=== PATIENT | female | born 1970 | race Caucasian/White ===

== ENCOUNTER 2017-11-17 16:48 | Emergency (ER) | payer OTHER ==
[2017-11-17 23:29] LABS: ADD MAN DIFF? NO
[2017-11-17 23:33] LABS: ABNORMAL IP MESSAGE 1; BASOPHIL # 0.1 10^3/ul (0.0-0.1); BASOPHILS % 1.2 % (0.0-2.0); EOSINOPHILS # 0.2 10^3/ul (0.0-0.5); EOSINOPHILS % 3.5 % (0.0-7.0); HEMATOCRIT 36.7 % (37.0-47.0); HEMOGLOBIN 11.2 g/dl (12.0-16.0); LYMPHOCYTES # 2.2 10^3/ul (0.8-2.9); LYMPHOCYTES % 32.7 % (15.0-51.0); MEAN CORPUSCULAR HEMOGLOBIN 24.9 pg (29.0-33.0); MEAN CORPUSCULAR HGB CONC 30.5 g/dl (32.0-37.0); MEAN CORPUSCULAR VOLUME 81.7 fl (82.0-101.0); MEAN PLATELET VOLUME 8.5 fl (7.4-10.4); MONOCYTE # 0.5 10^3/ul (0.3-0.9); MONOCYTES % 7.6 % (0.0-11.0); NEUTROPHIL # 3.7 10^3/ul (1.6-7.5); NEUTROPHILS % 54.7 % (39.0-77.0); PLATELET COUNT 248 10^3/UL (140-415); RED BLOOD COUNT 4.49 10^6/ul (4.20-5.40); RED CELL DISTRIBUTION WIDTH 23.9 % (11.5-14.5)
[2017-11-17 23:33] LABS: WHITE BLOOD COUNT 6.8 10^3/ul (4.8-10.8)
[2017-11-17] MEDS: FAMOTIDINE 20 MG INJ IV (23:40)
[2017-11-17] MEDS: ONDANSETRON 4 MG INJ IV (23:40)
[2017-11-17] MEDS: SOD CHLORIDE 0.9% 1,000 ML IV (23:40)
[2017-11-17 23:44] LABS: POSITIVE DIFF @See below
[2017-11-17 23:55] LABS: INR 0.92; PROTIME 12.4 Sec (11.9-14.9)
[2017-11-17 23:56] LABS: PARTIAL THROMBOPLASTIN TIME 32.7 Sec (25.0-35.0)
[2017-11-18] LABS: ALANINE AMINOTRANSFERASE 45 IU/L (13-69); ALBUMIN 4.1 g/dl (3.3-4.9); ALBUMIN/GLOBULIN RATIO 1.32; ALKALINE PHOSPHATASE 47 IU/L (42-121); ANION GAP 14 (8-16); ASPARTATE AMINO TRANSFERASE 29 IU/L (15-46); BILIRUBIN,INDIRECT 1.3 mg/dl (0-1.1); BILIRUBIN,TOTAL 1.3 mg/dl (0.2-1.3); BLOOD UREA NITROGEN 13 mg/dl (7-20); CALCIUM 9.5 mg/dl (8.4-10.2); CARBON DIOXIDE 26 mmol/L (21-31); CHLORIDE 103 mmol/L (97-110); CREATININE 0.55 mg/dl (0.44-1.00); GLUCOSE 105 mg/dl (70-220); POTASSIUM 4.3 mmol/L (3.5-5.1); SODIUM 139 mmol/L (135-144); TOTAL PROTEIN 7.2 g/dl (6.1-8.1)
[2017-11-18 00:17] LABS: FREE THYROXINE INDEX (Calc) 1.65 ug/ml (0.65-3.89); T3 UPTAKE 29.4 % (23.5-40.5); T4 (THYROXINE) 5.6 ug/dl (5.5-11.0)
[2017-11-18 00:18] LABS: TROPONIN-I < 0.012 ng/ml (0.00-0.12)
[2017-11-18] MEDS: SOD CHLORIDE 0.9% 1,000 ML IV (01:52)
[2017-11-18 02:14] LABS: ADD UMIC NO; UR ASCORBIC ACID NEGATIVE (NEGATIVE); UR BILIRUBIN (Dip) NEGATIVE (NEGATIVE); UR BLOOD (Dip) NEGATIVE (NEGATIVE); UR CALCIUM OXALATE CRYSTAL FEW /HPF (NONE SEEN); UR CLARITY SLIGHTLY CLOUDY (CLEAR); UR COLOR YELLOW (YELLOW); UR GLUCOSE (Dip) NEGATIVE (NEGATIVE); UR KETONES (Dip) NEGATIVE (NEGATIVE); UR LEUKOCYTE ESTERASE (Dip) NEGATIVE Leu/ul (NEGATIVE); UR MUCUS FEW /HPF (NONE SEEN); UR NITRITE (Dip) NEGATIVE (NEGATIVE); UR RBC 2 /HPF (0-5); UR SPECIFIC GRAVITY (Dip) 1.029 (1.003-1.030); UR SQUAMOUS EPITHELIAL CELL FEW /HPF (FEW); UR TOTAL PROTEIN (Dip) NEGATIVE (NEGATIVE); UR UROBILINOGEN (Dip) NEGATIVE (NEGATIVE); UR WBC 0 /HPF (0-5)
[2017-11-18 03:45] LABS: HEMATOCRIT 36.6 % (37.0-47.0); HEMOGLOBIN 11.3 g/dl (12.0-16.0)
== END 2017-11-18 05:30 | disposition home or self-care (01) ==
LOC: E/R 11-18 05:30
DX: R94.6 Abnormal results of thyroid function studies (principal); J45.909 Unspecified asthma, uncomplicated; R07.9 Chest pain, unspecified
CPT/HCPCS: 80053; 81001; 81003; 84436; 84443; 84479; 84484; 85014; 85018; 85025; 85610; 85730; 86850; 86900; 86901; 93005; 96374; 96375; 99284-25

== ENCOUNTER 2018-02-01 00:08 | Emergency (ER) | payer OTHER ==
[2018-02-01] MEDS: ONDANSETRON 4 MG INJ IV (02:11)
[2018-02-01] MEDS: morphine 4 MG/ML VIAL IV (02:12)
[2018-02-01 02:19] LABS: ADD MAN DIFF? NO
[2018-02-01 02:21] LABS: WHITE BLOOD COUNT 8.6 10^3/ul (4.8-10.8)
[2018-02-01 02:21] LABS: BASOPHIL # 0.1 10^3/ul (0.0-0.1); BASOPHILS % 0.7 % (0.0-2.0); EOSINOPHILS # 0.2 10^3/ul (0.0-0.5); EOSINOPHILS % 2.3 % (0.0-7.0); HEMATOCRIT 39.7 % (37.0-47.0); HEMOGLOBIN 13.3 g/dl (12.0-16.0); LYMPHOCYTES # 2.7 10^3/ul (0.8-2.9); LYMPHOCYTES % 31.1 % (15.0-51.0); MEAN CORPUSCULAR HEMOGLOBIN 28.9 pg (29.0-33.0); MEAN CORPUSCULAR HGB CONC 33.5 g/dl (32.0-37.0); MEAN CORPUSCULAR VOLUME 86.3 fl (82.0-101.0); MEAN PLATELET VOLUME 8.5 fl (7.4-10.4); MONOCYTE # 0.7 10^3/ul (0.3-0.9); MONOCYTES % 7.8 % (0.0-11.0); NEUTROPHIL # 4.9 10^3/ul (1.6-7.5); NEUTROPHILS % 57.9 % (39.0-77.0); PLATELET COUNT 274 10^3/UL (140-415); RED CELL DISTRIBUTION WIDTH 14.4 % (11.5-14.5)
[2018-02-01 02:44] LABS: ADD UMIC YES; UR ASCORBIC ACID NEGATIVE (NEGATIVE); UR BILIRUBIN (Dip) NEGATIVE (NEGATIVE); UR BLOOD (Dip) 3+ mg/dL (NEGATIVE); UR CLARITY CLEAR (CLEAR); UR COLOR YELLOW (YELLOW); UR GLUCOSE (Dip) NEGATIVE (NEGATIVE); UR KETONES (Dip) NEGATIVE (NEGATIVE); UR LEUKOCYTE ESTERASE (Dip) NEGATIVE Leu/ul (NEGATIVE); UR MUCUS FEW /HPF (NONE SEEN); UR NITRITE (Dip) NEGATIVE (NEGATIVE); UR RBC 140 /HPF (0-5); UR SPECIFIC GRAVITY (Dip) 1.015 (1.003-1.030); UR TOTAL PROTEIN (Dip) NEGATIVE (NEGATIVE); UR UROBILINOGEN (Dip) NEGATIVE (NEGATIVE); UR WBC 2 /HPF (0-5)
[2018-02-01 02:46] LABS: ALANINE AMINOTRANSFERASE 41 IU/L (13-69); ALBUMIN 4.1 g/dl (3.3-4.9); ALBUMIN/GLOBULIN RATIO 1.28; ALKALINE PHOSPHATASE 81 IU/L (42-121); ANION GAP 15 (8-16); ASPARTATE AMINO TRANSFERASE 31 IU/L (15-46); BILIRUBIN,INDIRECT 0.4 mg/dl (0-1.1); BILIRUBIN,TOTAL 0.4 mg/dl (0.2-1.3); BLOOD UREA NITROGEN 10 mg/dl (7-20); CALCIUM 9.8 mg/dl (8.4-10.2); CARBON DIOXIDE 21 mmol/L (21-31); CHLORIDE 112 mmol/L (97-110); CREATININE 0.62 mg/dl (0.44-1.00); GLUCOSE 102 mg/dl (70-220); LIPASE 108 U/L (23-300); POTASSIUM 4.1 mmol/L (3.5-5.1); SODIUM 144 mmol/L (135-144); TOTAL PROTEIN 7.3 g/dl (6.1-8.1)
== END 2018-02-01 04:31 | disposition home or self-care (01) ==
LOC: E/R 04:31
DX: R10.32 Left lower quadrant pain (principal); J45.909 Unspecified asthma, uncomplicated; Z91.040 Latex allergy status
CPT/HCPCS: 36415; 74176; 80053; 81001; 83690; 84703; 85025; 96374; 96375; 99285-25

== ENCOUNTER 2018-12-22 13:27 | Inpatient (IN) | payer OTHER ==
[2018-12-22 14:12] LABS: ADD MAN DIFF? NO
[2018-12-22 14:16] LABS: WHITE BLOOD COUNT 5.5 10^3/ul (4.8-10.8)
[2018-12-22 14:16] LABS: BASOPHIL # 0.1 10^3/ul (0.0-0.1); BASOPHILS % 1.1 % (0.0-2.0); EOSINOPHILS # 0.2 10^3/ul (0.0-0.5); EOSINOPHILS % 2.9 % (0.0-7.0); HEMATOCRIT 36.9 % (37.0-47.0); HEMOGLOBIN 11.5 g/dl (12.0-16.0); LYMPHOCYTES # 1.7 10^3/ul (0.8-2.9); LYMPHOCYTES % 31.1 % (15.0-51.0); MEAN CORPUSCULAR HEMOGLOBIN 25.6 pg (29.0-33.0); MEAN CORPUSCULAR HGB CONC 31.2 g/dl (32.0-37.0); MEAN PLATELET VOLUME 8.9 fl (7.4-10.4); MONOCYTE # 0.4 10^3/ul (0.3-0.9); MONOCYTES % 7.6 % (0.0-11.0); NEUTROPHIL # 3.1 10^3/ul (1.6-7.5); NEUTROPHILS % 57.1 % (39.0-77.0); PLATELET COUNT 318 10^3/UL (140-415)
[2018-12-22 14:17] LABS: ADD UMIC YES; UR AMORPHOUS CRYSTAL MODERATE /HPF (NONE SEEN); UR ASCORBIC ACID NEGATIVE (NEGATIVE); UR BILIRUBIN (Dip) NEGATIVE (NEGATIVE); UR BLOOD (Dip) NEGATIVE (NEGATIVE); UR CLARITY CLOUDY (CLEAR); UR COLOR YELLOW (YELLOW); UR GLUCOSE (Dip) NEGATIVE (NEGATIVE); UR KETONES (Dip) NEGATIVE (NEGATIVE); UR LEUKOCYTE ESTERASE (Dip) NEGATIVE Leu/ul (NEGATIVE); UR MUCUS FEW /HPF (NONE SEEN); UR NITRITE (Dip) NEGATIVE (NEGATIVE); UR RBC 6 /HPF (0-5); UR SPECIFIC GRAVITY (Dip) 1.012 (1.003-1.030); UR SQUAMOUS EPITHELIAL CELL FEW /HPF (FEW); UR TOTAL PROTEIN (Dip) NEGATIVE (NEGATIVE); UR UROBILINOGEN (Dip) NEGATIVE (NEGATIVE); UR WBC 0 /HPF (0-5)
[2018-12-22 14:36] LABS: ANION GAP 8 (5-13); BLOOD UREA NITROGEN 10 mg/dl (7-20); CALCIUM 9.5 mg/dl (8.4-10.2); CARBON DIOXIDE 23 mmol/L (21-31); CHLORIDE 112 mmol/L (97-110); CHOL/HDL RATIO 2.2 RATIO; CHOLESTEROL 117 mg/dl (100-200); CREATININE 0.66 mg/dl (0.44-1.00); Estimated GFR > 60 mL/min (>60); GLUCOSE 90 mg/dl (70-220); HDL CHOLESTEROL 52 mg/dl (37-92); INR 0.98; LDL CHOLESTEROL,CALCULATED 45 mg/dl; POTASSIUM 3.9 mmol/L (3.5-5.1); PROTIME 13.1 Sec (11.9-14.9); SODIUM 143 mmol/L (135-144); TRIGLYCERIDES 101 mg/dl (0-149)
[2018-12-22 14:37] LABS: PARTIAL THROMBOPLASTIN TIME 34.5 Sec (23.0-35.0)
[2018-12-22 14:46] LABS: TROPONIN-I < 0.012 ng/ml (0.000-0.120)
[2018-12-22 14:48] LABS: AMPHETAMINE/METHAMPHETAMINE Negative (NEGATIVE); BARBITURATES Negative (NEGATIVE); BENZODIAZEPINES Negative (NEGATIVE); CANNABINOIDS Negative (NEGATIVE); COCAINE Negative (NEGATIVE); OPIATES Negative (NEGATIVE)
[2018-12-22 15:13] LABS: HEMOGLOBIN A1C 5.1 % (0-5.9)
[2018-12-22] MEDS ORDERED: ACETAMINOPHEN 325 MG TAB PO (16:30)
[2018-12-22] MEDS ORDERED: ONDANSETRON 4 MG INJ IV (16:30)
[2018-12-22] MEDS ORDERED: NACL 0.9% 3 ML SYG IV (17:00)
[2018-12-22] MEDS ORDERED: LORAZEPAM 0.5 MG TAB PO (18:00)
[2018-12-22] MEDS ORDERED: ZOLPIDEM 5 MG TAB PO (18:00)
[2018-12-22] MEDS: CLOPIDOGREL 75 MG TAB PO (18:12)
[2018-12-22] MEDS: TOPIRAMATE 100 MG TAB PO (22:47)
[2018-12-22] MEDS: ATORVASTATIN 10 MG TAB PO (22:47)
[2018-12-23] MEDS: LEVOTHYROXINE 25 MCG TAB PO (06:38)
[2018-12-23 07:12] LABS: HEMOGLOBIN A1C 5.1 % (0-5.9)
[2018-12-23] MEDS: INFLUENZA VIRUS VACCINE 0.5 ML (DISPENSING) IM* (10:57)
[2018-12-23] MEDS: FENOFIBRATE 145 MG TAB PO (10:58)
[2018-12-23] MEDS: TOPIRAMATE 100 MG TAB PO ×2 (10:58→20:37)
[2018-12-23] MEDS: ATORVASTATIN 10 MG TAB PO (20:37)
[2018-12-24] MEDS: LEVOTHYROXINE 25 MCG TAB PO (06:04)
[2018-12-24] MEDS: FENOFIBRATE 145 MG TAB PO (08:15)
[2018-12-24] MEDS: TOPIRAMATE 100 MG TAB PO (08:15)
[2018-12-24] MEDS ORDERED: ONDANSETRON 4 MG INJ IV (08:30)
[2018-12-24] MEDS: HYDROCODONE/APAP (5/325) TAB PO (09:31)
== END 2018-12-24 19:28 | DRG 880 ==
LOC: E/R 13:27 → TEL 16:16
DX: F41.9 Anxiety disorder, unspecified (principal); G40.909 Epilepsy, unspecified, not intractable, without status epilepticus; E03.9 Hypothyroidism, unspecified; E78.5 Hyperlipidemia, unspecified; R47.89 Other speech disturbances; Z87.820 Personal history of traumatic brain injury
CPT/HCPCS: 36415; 70450; 70551; 71045; 80048; 80061; 80307; 81001; 81025; 83036; 84484; 85025; 85610; 85730; 90686; 92507; 92523; 92526; 92610; 93005; 93880; 95819; 97116; 97162; 97530; 99285-25